=== PATIENT | male | born 1955 | race Caucasian/White ===

== ENCOUNTER → 2016-05-02 | Outpatient (CLI) | payer BC ==
[~2016-05-02] MED LIST: COUMADIN1 MG PO; COUMADIN5 MG PO; MEDROL 4MG DOSPA4 MG PO; MULTI VITAMINS1 TAB PO; NIACIN PO; NIACIN1000 MG PO; NIACIN500 M1 PO; TYLENOL 325MG325 MG PO
== END ==
LOC: LAB 06:56
DX: Z51.81 Encounter for therapeutic drug level monitoring (principal); Z79.01 Long term (current) use of anticoagulants; I82.419 Acute embolism and thrombosis of unspecified femoral vein; I26.99 Other pulmonary embolism without acute cor pulmonale

== ENCOUNTER → 2016-06-18 | Outpatient (CLI) | payer BC | LOC: LAB 06:41 | DX: Z51.81 Encounter for therapeutic drug level monitoring (principal); Z79.01 Long term (current) use of anticoagulants; I26.99 Other pulmonary embolism without acute cor pulmonale; D68.59 Other primary thrombophilia; Z86.718 Personal history of other venous thrombosis and embolism ==

== ENCOUNTER → 2016-08-06 | Outpatient (CLI) | payer BC ==
[2015-10-20 08:45] VITALS: BP 126/70
== END ==
LOC: LAB 06:57
DX: Z51.81 Encounter for therapeutic drug level monitoring (principal); Z79.01 Long term (current) use of anticoagulants; I82.413 Acute embolism and thrombosis of femoral vein, bilateral; I26.99 Other pulmonary embolism without acute cor pulmonale

== ENCOUNTER → 2016-09-25 | Outpatient (CLI) | payer BC ==
[2015-10-20 08:45] VITALS: BP 126/70
== END ==
LOC: LAB 06:37
DX: Z51.81 Encounter for therapeutic drug level monitoring (principal); Z79.01 Long term (current) use of anticoagulants; I82.419 Acute embolism and thrombosis of unspecified femoral vein; I26.99 Other pulmonary embolism without acute cor pulmonale

== ENCOUNTER → 2016-10-24 | Outpatient (CLI) | payer BC ==
[2015-10-20 08:45] VITALS: BP 126/70
== END ==
LOC: LAB 06:37
DX: E03.4 Atrophy of thyroid (acquired) (principal); Z00.00 Encounter for general adult medical examination without abnormal findings; Z12.5 Encounter for screening for malignant neoplasm of prostate; Z51.81 Encounter for therapeutic drug level monitoring; Z79.01 Long term (current) use of anticoagulants; I82.419 Acute embolism and thrombosis of unspecified femoral vein; I26.99 Other pulmonary embolism without acute cor pulmonale

== ENCOUNTER → 2016-10-29 | Outpatient (CLI) | payer BC ==
[2015-10-20 08:45] VITALS: BP 126/70
== END ==
LOC: LAB 06:58
DX: Z12.11 Encounter for screening for malignant neoplasm of colon (principal)

== ENCOUNTER → 2016-11-02 | Outpatient (CLI) | payer BC ==
[~2016-11-02] VITALS: Ht 182.9 cm; Wt 92.3 kg
[2016-11-02 08:34] VITALS: BP 133/75
== END ==
LOC: AMSURD 08:18
DX: Z00.00 Encounter for general adult medical examination without abnormal findings (principal)

== ENCOUNTER → 2016-12-05 | Outpatient (CLI) | payer BC ==
[2016-11-02 08:34] VITALS: BP 133/75
== END ==
LOC: LAB 06:46
DX: E03.9 Hypothyroidism, unspecified (principal); I82.419 Acute embolism and thrombosis of unspecified femoral vein; I26.99 Other pulmonary embolism without acute cor pulmonale

== ENCOUNTER → 2017-01-03 | Outpatient (CLI) | payer BC ==
[2016-11-02 08:34] VITALS: BP 133/75
== END ==
LOC: LAB 06:42
DX: E03.9 Hypothyroidism, unspecified (principal)

== ENCOUNTER → 2017-02-12 | Outpatient (CLI) | payer BC ==
[2016-11-02 08:34] VITALS: BP 133/75
[2017-02-12 07:34] LABS: PROTHROMBIN TIME 25.2 SECONDS (9.0-12.0)
== END ==
LOC: LAB 07:04
PROVIDERS: Internal Medicine
DX: I82.419 Acute embolism and thrombosis of unspecified femoral vein (principal); I26.99 Other pulmonary embolism without acute cor pulmonale

== ENCOUNTER → 2017-04-09 | Outpatient (CLI) | payer BC ==
[2016-11-02 08:34] VITALS: BP 133/75
[2017-04-09 07:09] LABS: PROTHROMBIN TIME 22.8 SECONDS (9.0-12.0)
== END ==
LOC: LAB 06:40
PROVIDERS: Internal Medicine
DX: E03.4 Atrophy of thyroid (acquired) (principal); I82.419 Acute embolism and thrombosis of unspecified femoral vein; I26.99 Other pulmonary embolism without acute cor pulmonale

== ENCOUNTER → 2017-05-27 | Outpatient (CLI) | payer BC ==
[2016-11-02 08:34] VITALS: BP 133/75
[2017-05-27 08:06] LABS: PROTHROMBIN TIME 22.3 SECONDS (9.0-12.0)
== END ==
LOC: LAB 06:40
PROVIDERS: Internal Medicine
DX: E03.4 Atrophy of thyroid (acquired) (principal)

== ENCOUNTER → 2017-06-27 | Outpatient (CLI) | payer BC ==
[2016-11-02 08:34] VITALS: BP 133/75
[2017-06-27 07:23] LABS: PROTHROMBIN TIME 23.5 SECONDS (9.0-12.0)
== END ==
LOC: LAB 06:36
PROVIDERS: Internal Medicine
DX: I26.99 Other pulmonary embolism without acute cor pulmonale (principal); D68.59 Other primary thrombophilia; E03.9 Hypothyroidism, unspecified; Z88.5 Allergy status to narcotic agent

== ENCOUNTER → 2017-08-13 | Outpatient (CLI) | payer BC ==
[2016-11-02 08:34] VITALS: BP 133/75
[2017-08-13 07:14] LABS: PROTHROMBIN TIME 22.8 SECONDS (9.0-12.0)
== END ==
LOC: LAB 06:32
PROVIDERS: Internal Medicine
DX: I26.99 Other pulmonary embolism without acute cor pulmonale (principal); D68.59 Other primary thrombophilia; Z88.5 Allergy status to narcotic agent

== ENCOUNTER → 2017-09-10 | Outpatient (CLI) | payer BC ==
[2016-11-02 08:34] VITALS: BP 133/75
== END ==
LOC: LAB 06:34
PROVIDERS: Internal Medicine
DX: I26.99 Other pulmonary embolism without acute cor pulmonale (principal); D68.59 Other primary thrombophilia

== ENCOUNTER → 2017-10-14 | Outpatient (CLI) | payer BC ==
[2016-11-02 08:34] VITALS: BP 133/75
[2017-10-14 08:45] LABS: PROTHROMBIN TIME 22.7 SECONDS (9.0-12.0)
== END ==
LOC: LAB 06:43
PROVIDERS: Internal Medicine
DX: I26.99 Other pulmonary embolism without acute cor pulmonale (principal); D68.59 Other primary thrombophilia

== ENCOUNTER → 2017-11-18 | Outpatient (CLI) | payer BC ==
[2016-11-02 08:34] VITALS: BP 133/75
== END ==
LOC: LAB 07:11
PROVIDERS: Internal Medicine
DX: Z00.00 Encounter for general adult medical examination without abnormal findings (principal); Z12.11 Encounter for screening for malignant neoplasm of colon

== ENCOUNTER → 2017-11-25 | Outpatient (CLI) | payer BC ==
[~2017-11-25] VITALS: Ht 182.9 cm; Wt 92.3 kg
[~2017-11-25] MED LIST changes: +SYNTHROID0.15 MG PO; +WARFARIN SOD5 MG PO
[2017-11-25 08:47] VITALS: BP 118/72
== END ==
LOC: AMSURD 08:14
DX: Z00.00 Encounter for general adult medical examination without abnormal findings (principal)

== ENCOUNTER → 2017-12-16 | Outpatient (CLI) | payer BC ==
[2017-11-25 08:47] VITALS: BP 118/72
[2017-12-16 07:16] LABS: PROTHROMBIN TIME 19.6 SECONDS (9.0-12.0)
== END ==
LOC: LAB 06:38
PROVIDERS: Internal Medicine
DX: I26.99 Other pulmonary embolism without acute cor pulmonale (principal); D68.59 Other primary thrombophilia; E03.9 Hypothyroidism, unspecified

== ENCOUNTER → 2018-01-20 | Outpatient (CLI) | payer BC ==
[2017-11-25 08:47] VITALS: BP 118/72
[2018-01-20 07:51] LABS: PROTHROMBIN TIME 22.6 SECONDS (9.0-12.0)
== END ==
LOC: LAB 06:41
PROVIDERS: Internal Medicine
DX: I26.99 Other pulmonary embolism without acute cor pulmonale (principal); D68.59 Other primary thrombophilia

== ENCOUNTER → 2018-03-05 | Outpatient (CLI) | payer BC ==
[2017-11-25 08:47] VITALS: BP 118/72
[2018-03-05 07:30] LABS: PROTHROMBIN TIME 25.1 SECONDS (9.0-12.0)
== END ==
LOC: LAB 06:43
PROVIDERS: Internal Medicine
DX: I26.99 Other pulmonary embolism without acute cor pulmonale (principal); D68.59 Other primary thrombophilia

== ENCOUNTER → 2018-05-01 | Outpatient (CLI) | payer BC ==
[2017-11-25 08:47] VITALS: BP 118/72
[2018-05-01 10:25] LABS: PROTHROMBIN TIME 24.6 SECONDS (9.0-12.0)
== END ==
LOC: LAB 08:20
PROVIDERS: Internal Medicine
DX: I26.99 Other pulmonary embolism without acute cor pulmonale (principal); D68.59 Other primary thrombophilia; E03.9 Hypothyroidism, unspecified

== ENCOUNTER → 2018-06-12 | Outpatient (CLI) | payer BC ==
[2017-11-25 08:47] VITALS: BP 118/72
[2018-06-12 07:21] LABS: PROTHROMBIN TIME 26.6 SECONDS (9.0-12.0)
== END ==
LOC: LAB 06:53
PROVIDERS: Internal Medicine
DX: I26.99 Other pulmonary embolism without acute cor pulmonale (principal); D68.59 Other primary thrombophilia

== ENCOUNTER → 2018-07-22 | Outpatient (CLI) | payer BC ==
[2017-11-25 08:47] VITALS: BP 118/72
[2018-07-22 07:21] LABS: PROTHROMBIN TIME 22.4 SECONDS (9.0-12.0)
== END ==
LOC: LAB 06:56
PROVIDERS: Internal Medicine
DX: D68.59 Other primary thrombophilia (principal); I26.99 Other pulmonary embolism without acute cor pulmonale

== ENCOUNTER → 2018-09-15 | Outpatient (CLI) | payer BC ==
[2017-11-25 08:47] VITALS: BP 118/72
[2018-09-15 07:13] LABS: PROTHROMBIN TIME 22.9 SECONDS (9.0-12.0)
== END ==
LOC: LAB 06:51
PROVIDERS: Internal Medicine
DX: I26.99 Other pulmonary embolism without acute cor pulmonale (principal); D68.59 Other primary thrombophilia

== ENCOUNTER → 2018-11-24 | Outpatient (CLI) | payer BC ==
[2017-11-25 08:47] VITALS: BP 118/72
[2018-11-24 15:54] LABS: URINE APPEARANCE CLEAR; URINE BILIRUBIN NEGATIVE (NEGATIVE); URINE BLOOD NEGATIVE (NEGATIVE); URINE COLOR YELLOW; URINE GLUCOSE NEGATIVE (NEGATIVE); URINE KETONE NEGATIVE (NEGATIVE); URINE LEUKOCYTE ESTERASE NEGATIVE (NEGATIVE); URINE NITRATE NEGATIVE (NEGATIVE); URINE PROTEIN(semi-quant) NEGATIVE (NEGATIVE); URINE UROBILINOGEN NORMAL (NORMAL)
[2018-11-24 15:55] LABS: URINE MUCUS PRESENT (NOT PRESENT)
== END ==
LOC: LAB 07:04
PROVIDERS: Internal Medicine
DX: Z00.00 Encounter for general adult medical examination without abnormal findings (principal); Z12.5 Encounter for screening for malignant neoplasm of prostate; Z12.11 Encounter for screening for malignant neoplasm of colon

== ENCOUNTER → 2019-03-10 | Outpatient (CLI) | payer BC ==
[2017-11-25 08:47] VITALS: BP 118/72
[2019-03-10 07:55] LABS: PROTHROMBIN TIME 26.4 SECONDS (9.0-12.0)
== END ==
LOC: LAB 06:36
PROVIDERS: Internal Medicine
DX: D68.59 Other primary thrombophilia (principal); I26.99 Other pulmonary embolism without acute cor pulmonale

== ENCOUNTER → 2019-05-04 | Outpatient (CLI) | payer BC ==
[2017-11-25 08:47] VITALS: BP 118/72
[2019-05-04 07:27] LABS: PROTHROMBIN TIME 22.9 SECONDS (9.0-12.0)
== END ==
LOC: LAB 06:38
PROVIDERS: Internal Medicine
DX: I26.99 Other pulmonary embolism without acute cor pulmonale (principal); D68.59 Other primary thrombophilia

== ENCOUNTER → 2019-06-08 | Outpatient (CLI) | payer BC ==
[2017-11-25 08:47] VITALS: BP 118/72
[2019-06-08 07:15] LABS: PROTHROMBIN TIME 21.2 SECONDS (9.0-12.0)
== END ==
LOC: LAB 06:46
PROVIDERS: Internal Medicine
DX: I26.99 Other pulmonary embolism without acute cor pulmonale (principal); D68.59 Other primary thrombophilia

== ENCOUNTER → 2019-08-04 | Outpatient (CLI) | payer BC ==
[2017-11-25 08:47] VITALS: BP 118/72
[2019-08-04 10:05] LABS: PROTHROMBIN TIME 20.2 SECONDS (9.0-12.0)
== END ==
LOC: LAB 08:18
PROVIDERS: Internal Medicine
DX: I26.99 Other pulmonary embolism without acute cor pulmonale (principal); D68.59 Other primary thrombophilia

== ENCOUNTER → 2019-11-03 | Outpatient (CLI) | payer BC ==
[2017-11-25 08:47] VITALS: BP 118/72
[2019-11-03 07:56] LABS: PROTHROMBIN TIME 21.5 SECONDS (9.0-12.0)
== END ==
LOC: LAB 06:41
PROVIDERS: Internal Medicine
DX: I26.99 Other pulmonary embolism without acute cor pulmonale (principal); D68.59 Other primary thrombophilia

== ENCOUNTER → 2019-12-02 | Outpatient (CLI) | payer BC ==
[2017-11-25 08:47] VITALS: BP 118/72
[2019-12-02 07:08] LABS: EOS # 0.1 (0.04-0.40); EOS % 1.9 % (0.0-4.0); HEMATOCRIT 46.9 % (42.0-52.0); HEMOGLOBIN 16.7 g/dL (13.5-18.0); LYMPH# 1.5 (1.50-4.00); MEAN CELL VOLUME 88 fl (78-100); MEAN CORPUSCULAR HEMOGLOBIN 31 pg (27-31); MEAN CORPUSCULAR HGB CONC 36 g/dL (33-37); MEAN PLATELET VOLUME 9.7 fl (7.4-10.4); MONO # 0.5 (0.20-0.80); NEU # 4.1 (1.40-6.50); PLATELET COUNT 110 K/mm3 (130-400); RED BLOOD COUNT 5.35 M/mm3 (4.20-5.60); RED CELL DISTRIBUTION WIDTH 12.8 % (11.5-14.5); WHITE BLOOD COUNT 6.3 K/mm3 (4.8-10.8)
[2019-12-02 07:13] LABS: ALBUMIN 4.3 g/dL (3.4-4.8); POTASSIUM 4.1 mmol/L (3.5-5.1)
[2019-12-02 07:14] LABS: CALCIUM 9.6 mg/dL (8.3-10.5)
[2019-12-02 07:16] LABS: TOTAL PROTEIN 7.8 g/dL (6.2-8.1)
[2019-12-02 07:18] LABS: TOTAL BILIRUBIN 0.9 mg/dL (0.2-1.2)
[2019-12-02 07:26] LABS: PROTHROMBIN TIME 28.1 SECONDS (9.0-12.0)
[2019-12-02 08:19] LABS: ERYTHROCYTE SEDIMENTATION RATE 0 mm/hr (0-20)
== END ==
LOC: LAB 06:40
PROVIDERS: Internal Medicine
DX: Z00.00 Encounter for general adult medical examination without abnormal findings (principal); Z12.5 Encounter for screening for malignant neoplasm of prostate; I26.99 Other pulmonary embolism without acute cor pulmonale; D68.59 Other primary thrombophilia

== ENCOUNTER → 2019-12-07 | Outpatient (CLI) | payer BC ==
[2017-11-25 08:47] VITALS: BP 118/72
[2019-12-07 09:07] LABS: URINE APPEARANCE CLEAR; URINE BILIRUBIN NEGATIVE (NEGATIVE); URINE BLOOD NEGATIVE (NEGATIVE); URINE COLOR YELLOW; URINE GLUCOSE NEGATIVE (NEGATIVE); URINE KETONE NEGATIVE (NEGATIVE); URINE LEUKOCYTE ESTERASE NEGATIVE (NEGATIVE); URINE MUCUS PRESENT (NOT PRESENT); URINE NITRATE NEGATIVE (NEGATIVE); URINE PROTEIN(semi-quant) NEGATIVE (NEGATIVE); URINE UROBILINOGEN NORMAL (NORMAL); URINE WBC 0-1 /hpf (0-3)
== END ==
LOC: LAB 07:44
PROVIDERS: Internal Medicine
DX: Z00.00 Encounter for general adult medical examination without abnormal findings (principal); Z12.5 Encounter for screening for malignant neoplasm of prostate

== ENCOUNTER → 2019-12-15 | Outpatient (CLI) | payer BC ==
[2017-11-25 08:47] VITALS: BP 118/72
== END ==
LOC: LAB 08:16
DX: E03.9 Hypothyroidism, unspecified (principal); N52.9 Male erectile dysfunction, unspecified

== ENCOUNTER → 2020-01-20 | Outpatient (CLI) | payer BC ==
[2017-11-25 08:47] VITALS: BP 118/72
[2020-01-20 08:05] LABS: PROTHROMBIN TIME 24.9 SECONDS (9.0-12.0)
== END ==
LOC: LAB 07:40
PROVIDERS: Internal Medicine
DX: D68.59 Other primary thrombophilia (principal); I26.99 Other pulmonary embolism without acute cor pulmonale

== ENCOUNTER → 2020-03-01 | Outpatient (CLI) | payer BC ==
[2017-11-25 08:47] VITALS: BP 118/72
[2020-03-01 07:35] LABS: PROTHROMBIN TIME 20.6 SECONDS (9.0-12.0)
== END ==
LOC: LAB 06:40
PROVIDERS: Internal Medicine
DX: D68.59 Other primary thrombophilia (principal); I26.99 Other pulmonary embolism without acute cor pulmonale

== ENCOUNTER → 2020-05-20 | Outpatient (CLI) | payer BC ==
[2017-11-25 08:47] VITALS: BP 118/72
[2020-05-20 09:36] LABS: PROTHROMBIN TIME 26.5 SECONDS (9.0-12.0)
== END ==
LOC: LAB 06:44
PROVIDERS: Internal Medicine
DX: D68.59 Other primary thrombophilia (principal); I26.99 Other pulmonary embolism without acute cor pulmonale

== ENCOUNTER → 2020-06-28 | Outpatient (CLI) | payer BC ==
[2017-11-25 08:47] VITALS: BP 118/72
== END ==
LOC: LAB 07:24
PROVIDERS: Internal Medicine
DX: D68.59 Other primary thrombophilia (principal)

== ENCOUNTER → 2020-08-09 | Outpatient (CLI) | payer BC ==
[2017-11-25 08:47] VITALS: BP 118/72
== END ==
LOC: LAB 06:38
PROVIDERS: Internal Medicine
DX: D68.59 Other primary thrombophilia (principal)

== ENCOUNTER → 2020-09-19 | Outpatient (CLI) | payer BC ==
[2017-11-25 08:47] VITALS: BP 118/72
[2020-09-19 07:44] LABS: PROTHROMBIN TIME 16.7 SECONDS (9.0-12.0)
== END ==
LOC: LAB 06:40
PROVIDERS: Internal Medicine
DX: D68.59 Other primary thrombophilia (principal)

== ENCOUNTER → 2020-09-27 | Outpatient (CLI) | payer BC ==
[2017-11-25 08:47] VITALS: BP 118/72
[2020-09-27 07:26] LABS: PROTHROMBIN TIME 21.3 SECONDS (9.0-12.0)
== END ==
LOC: LAB 06:38
PROVIDERS: Internal Medicine
DX: D68.59 Other primary thrombophilia (principal)

== ENCOUNTER → 2020-11-02 | Outpatient (CLI) | payer BC ==
[2020-11-02 07:53] LABS: PROTHROMBIN TIME 19.8 SECONDS (9.0-12.0)
== END ==
LOC: LAB 06:35
PROVIDERS: Internal Medicine
DX: D68.59 Other primary thrombophilia (principal)

== ENCOUNTER → 2020-11-28 | Outpatient (CLI) | payer BC ==
[2020-11-28 07:07] LABS: BASO # 0.02 (0.02-0.10); EOS # 0.11 (0.04-0.40); EOS % 1.7 % (0.0-4.0); HEMATOCRIT 47.4 % (42.0-52.0); HEMOGLOBIN 16.4 g/dL (13.5-18.0); LYMPH# 1.33 (1.50-4.00); MEAN CELL VOLUME 88 fl (78-100); MEAN CORPUSCULAR HEMOGLOBIN 30 pg (27-31); MEAN CORPUSCULAR HGB CONC 35 g/dL (33-37); MEAN PLATELET VOLUME 9.9 fl (7.4-10.4); MONO # 0.51 (0.20-0.80); NEU # 4.52 (1.40-6.50); PLATELET COUNT 101 K/mm3 (130-400); RED BLOOD COUNT 5.39 M/mm3 (4.20-5.60); RED CELL DISTRIBUTION WIDTH 12.4 % (11.5-14.5); WHITE BLOOD COUNT 6.5 K/mm3 (4.8-10.8)
[2020-11-28 07:12] LABS: POTASSIUM 4.1 mmol/L (3.5-5.1)
[2020-11-28 07:13] LABS: ALBUMIN 4.1 g/dL (3.4-4.8)
[2020-11-28 07:14] LABS: CALCIUM 9.3 mg/dL (8.3-10.5)
[2020-11-28 07:15] LABS: TOTAL PROTEIN 7.1 g/dL (6.2-8.1)
[2020-11-28 07:17] LABS: TOTAL BILIRUBIN 1.2 mg/dL (0.2-1.2)
[2020-11-28 08:32] LABS: ERYTHROCYTE SEDIMENTATION RATE 2 mm/hr (0-20)
== END ==
LOC: LAB 06:43
PROVIDERS: Internal Medicine
DX: Z00.00 Encounter for general adult medical examination without abnormal findings (principal); Z12.5 Encounter for screening for malignant neoplasm of prostate; Z12.11 Encounter for screening for malignant neoplasm of colon; D68.59 Other primary thrombophilia

== ENCOUNTER → 2021-01-10 | Outpatient (CLI) | payer BC ==
[2021-01-10 08:12] LABS: PROTHROMBIN TIME 31.6 SECONDS (9.0-12.0)
== END ==
LOC: LAB 06:37
PROVIDERS: Internal Medicine
DX: D68.59 Other primary thrombophilia (principal)

== ENCOUNTER → 2021-02-21 | Outpatient (CLI) | payer BC ==
[2021-02-21 08:22] LABS: PROTHROMBIN TIME 25.5 SECONDS (9.0-12.0)
== END ==
LOC: LAB 06:43
PROVIDERS: Internal Medicine
DX: D68.59 Other primary thrombophilia (principal)

== ENCOUNTER → 2021-04-04 | Outpatient (CLI) | payer BC ==
[2021-04-04 07:09] LABS: PROTHROMBIN TIME 19.7 SECONDS (9.0-12.0)
== END ==
LOC: LAB 06:41
PROVIDERS: Internal Medicine
DX: D68.59 Other primary thrombophilia (principal)

== ENCOUNTER → 2021-04-11 | Outpatient (CLI) | payer BC | LOC: LAB 10:51 | DX: Z20.822 Contact with and (suspected) exposure to COVID-19 (principal) ==

== ENCOUNTER → 2021-04-17 | Outpatient (CLI) | payer BC ==
[2021-04-17 07:14] LABS: PROTHROMBIN TIME 18.7 SECONDS (9.0-12.0)
== END ==
LOC: LAB 06:46
PROVIDERS: Internal Medicine
DX: D68.59 Other primary thrombophilia (principal)

== ENCOUNTER → 2021-05-09 | Outpatient (CLI) | payer BC ==
[2021-05-09 08:56] LABS: PROTHROMBIN TIME 23.3 SECONDS (9.0-12.0)
== END ==
LOC: LAB 07:49
PROVIDERS: Internal Medicine
DX: D68.59 Other primary thrombophilia (principal)

== ENCOUNTER → 2021-06-06 | Outpatient (CLI) | payer BC ==
[2021-06-06 07:26] LABS: PROTHROMBIN TIME 22.4 SECONDS (9.0-12.0)
== END ==
LOC: LAB 06:37
PROVIDERS: Internal Medicine
DX: D68.59 Other primary thrombophilia (principal)

== ENCOUNTER → 2021-07-31 | Outpatient (CLI) | payer BC ==
[2021-07-31 07:26] LABS: PROTHROMBIN TIME 18.7 SECONDS (9.0-12.0)
== END ==
LOC: LAB 06:34
PROVIDERS: Internal Medicine
DX: D68.59 Other primary thrombophilia (principal)

== ENCOUNTER → 2021-09-04 | Outpatient (CLI) | payer BC ==
[2021-09-04 08:20] LABS: PROTHROMBIN TIME 26.5 SECONDS (9.0-12.0)
== END ==
LOC: LAB 06:45
PROVIDERS: Internal Medicine
DX: D68.59 Other primary thrombophilia (principal)

== ENCOUNTER → 2021-10-09 | Outpatient (CLI) | payer BC ==
[2021-10-09 07:42] LABS: PROTHROMBIN TIME 22.9 SECONDS (9.0-12.0)
== END ==
LOC: LAB 06:45
PROVIDERS: Internal Medicine
DX: D68.59 Other primary thrombophilia (principal)

== ENCOUNTER → 2021-12-07 | Outpatient (CLI) | payer BC ==
[2021-12-07 07:29] LABS: BASO # 0.02 K/mm3 (0.02-0.10); EOS # 0.15 K/mm3 (0.04-0.40); EOS % 2.8 % (0.0-4.0); HEMATOCRIT 48.1 % (42.0-52.0); HEMOGLOBIN 16.6 g/dL (13.5-18.0); MEAN CELL VOLUME 89 fl (78-100); MEAN CORPUSCULAR HEMOGLOBIN 31 pg (27-31); MEAN CORPUSCULAR HGB CONC 35 g/dL (33-37); MEAN PLATELET VOLUME 10.3 fl (7.4-10.4); MONO # 0.49 K/mm3 (0.20-0.80); NEU # 3.38 K/mm3 (1.40-6.50); PLATELET COUNT 96 K/mm3 (130-400); RED CELL DISTRIBUTION WIDTH 12.4 % (11.5-14.5); WHITE BLOOD COUNT 5.5 K/mm3 (4.8-10.8)
[2021-12-07 08:45] LABS: PROTHROMBIN TIME 29.4 SECONDS (9.0-12.0)
[2021-12-07 08:47] LABS: ALBUMIN 4.2 g/dL (3.4-4.8); POTASSIUM 3.8 mmol/L (3.5-5.1)
[2021-12-07 08:48] LABS: CALCIUM 9.7 mg/dL (8.3-10.5)
[2021-12-07 08:50] LABS: TOTAL PROTEIN 7.2 g/dL (6.2-8.1)
[2021-12-07 08:51] LABS: TOTAL BILIRUBIN 1.3 mg/dL (0.2-1.2)
== END ==
LOC: LAB 06:35
PROVIDERS: Internal Medicine
DX: Z00.00 Encounter for general adult medical examination without abnormal findings (principal); Z12.5 Encounter for screening for malignant neoplasm of prostate; Z12.11 Encounter for screening for malignant neoplasm of colon; D68.59 Other primary thrombophilia

== ENCOUNTER → 2021-12-15 | Outpatient (CLI) | payer BC | LOC: LAB 07:38 | DX: Z00.00 Encounter for general adult medical examination without abnormal findings (principal); Z12.5 Encounter for screening for malignant neoplasm of prostate; Z12.11 Encounter for screening for malignant neoplasm of colon ==

== ENCOUNTER → 2022-01-19 | Outpatient (CLI) | payer BC ==
[2022-01-19 07:42] LABS: PROTHROMBIN TIME 27.5 SECONDS (9.0-12.0)
== END ==
LOC: LAB 06:44
PROVIDERS: Internal Medicine
DX: D68.59 Other primary thrombophilia (principal)

== ENCOUNTER → 2022-02-21 | Outpatient (CLI) | payer MEDICARE, BC ==
[2022-02-21 07:28] LABS: PROTHROMBIN TIME 20.6 SECONDS (9.0-12.0)
== END ==
LOC: LAB 06:49
PROVIDERS: Internal Medicine
DX: D68.59 Other primary thrombophilia (principal)

== ENCOUNTER → 2022-04-03 | Outpatient (CLI) | payer MEDICARE, BC ==
[2022-04-03 07:51] LABS: PROTHROMBIN TIME 20.9 SECONDS (9.0-12.0)
== END ==
LOC: LAB 06:45
PROVIDERS: Internal Medicine
DX: D68.59 Other primary thrombophilia (principal)

== ENCOUNTER → 2022-06-12 | Outpatient (CLI) | payer MEDICARE, BC ==
[2022-06-12 07:30] LABS: PROTHROMBIN TIME 18.2 SECONDS (9.0-12.0)
== END ==
LOC: LAB 06:45
PROVIDERS: Internal Medicine
DX: D68.59 Other primary thrombophilia (principal)

== ENCOUNTER → 2023-01-07 | Outpatient (CLI) | payer MEDICARE, BC ==
[~2023-01-07] MED LIST changes: +NIACIN 64 MG-501 TA1 PO; -NIACIN PO; +VIAGRA100 M1 PO; +VITAMIN D3 PO; +multivitamin PO
[2023-01-07 07:32] LABS: PROTHROMBIN TIME 31.6 SECONDS (9.0-12.0)
== END ==
LOC: LAB 06:38
PROVIDERS: Internal Medicine
DX: D68.59 Other primary thrombophilia (principal)

== ENCOUNTER → 2023-02-05 | Outpatient (CLI) | payer MEDICARE, BC ==
[2023-02-05 07:16] LABS: PROTHROMBIN TIME 24.1 SECONDS (9.0-12.0)
== END ==
LOC: LAB 06:33
PROVIDERS: Internal Medicine
DX: D68.59 Other primary thrombophilia (principal)

== ENCOUNTER → 2023-06-24 | Outpatient (CLI) | payer MEDICARE, BC ==
[2023-06-24 07:13] LABS: PROTHROMBIN TIME 20.9 SECONDS (9.0-12.0)
== END ==
LOC: LAB 06:37
PROVIDERS: Internal Medicine
DX: D68.59 Other primary thrombophilia (principal)

== ENCOUNTER → 2023-09-02 | Outpatient (CLI) | payer MEDICARE, BC ==
[2023-09-02 07:11] LABS: PROTHROMBIN TIME 20.1 SECONDS (9.0-12.0)
== END ==
LOC: LAB 06:36
PROVIDERS: Internal Medicine
DX: D68.59 Other primary thrombophilia (principal)

== ENCOUNTER → 2023-10-07 | Outpatient (CLI) | payer MEDICARE, BC ==
[2023-11-27 11:56] LABS: PROTHROMBIN TIME 24.6 SECONDS (9.0-12.0)
== END ==
LOC: LAB
PROVIDERS: Internal Medicine
DX: D68.59 Other primary thrombophilia (principal)

== ENCOUNTER → 2023-11-11 | Outpatient (CLI) | payer MEDICARE, BC ==
[2023-11-11 07:12] LABS: PROTHROMBIN TIME 19.4 SECONDS (9.0-12.0)
== END ==
LOC: LAB 06:33
PROVIDERS: Internal Medicine
DX: D68.59 Other primary thrombophilia (principal)

== ENCOUNTER → 2023-11-27 | Outpatient (CLI) | payer MEDICARE, BC | LOC: LAB 08:59 | DX: Z12.5 Encounter for screening for malignant neoplasm of prostate (principal); Z12.11 Encounter for screening for malignant neoplasm of colon; E78.2 Mixed hyperlipidemia; I49.5 Sick sinus syndrome; R73.9 Hyperglycemia, unspecified ==

== ENCOUNTER → 2023-12-19 | Outpatient (CLI) | payer MEDICARE, BC ==
[2023-12-19 07:14] LABS: PROTHROMBIN TIME 16.4 SECONDS (9.0-12.0)
== END ==
LOC: LAB 06:33
PROVIDERS: Internal Medicine
DX: D68.59 Other primary thrombophilia (principal)

== ENCOUNTER → 2023-12-31 | Outpatient (CLI) | payer MEDICARE | LOC: LAB 06:33 | PROVIDERS: Internal Medicine | DX: D68.59 Other primary thrombophilia (principal) ==

== ENCOUNTER → 2024-01-20 | Outpatient (CLI) | payer MEDICARE, BC ==
[2024-01-20 07:31] LABS: PROTHROMBIN TIME 22.9 SECONDS (9.0-12.0)
== END ==
LOC: LAB 06:41
PROVIDERS: Internal Medicine
DX: D68.59 Other primary thrombophilia (principal)

== ENCOUNTER → 2024-02-18 | Outpatient (CLI) | payer MEDICARE, BC ==
[2024-02-18 07:23] LABS: PROTHROMBIN TIME 22.5 SECONDS (9.0-12.0)
== END ==
LOC: LAB 06:31
PROVIDERS: Internal Medicine
DX: D68.59 Other primary thrombophilia (principal)

== ENCOUNTER → 2024-03-23 | Outpatient (CLI) | payer MEDICARE, BC | LOC: LAB 06:30 | PROVIDERS: Internal Medicine | DX: D68.59 Other primary thrombophilia (principal) ==

== ENCOUNTER → 2024-03-31 | Outpatient (CLI) | payer MEDICARE, BC ==
[2024-03-31 07:53] LABS: PROTHROMBIN TIME 17.7 SECONDS (9.0-12.0)
== END ==
LOC: LAB 06:56
PROVIDERS: Internal Medicine
DX: D68.59 Other primary thrombophilia (principal)

== ENCOUNTER → 2024-04-07 | Outpatient (CLI) | payer MEDICARE, BC ==
[2024-04-07 07:42] LABS: PROTHROMBIN TIME 18.1 SECONDS (9.0-12.0)
== END ==
LOC: LAB 06:44
PROVIDERS: Internal Medicine
DX: D68.59 Other primary thrombophilia (principal)

== ENCOUNTER → 2024-04-15 | Outpatient (CLI) | payer MEDICARE, BC ==
[2024-04-15 08:06] LABS: PROTHROMBIN TIME 22.1 SECONDS (9.0-12.0)
== END ==
LOC: LAB 06:42
PROVIDERS: Internal Medicine
DX: D68.59 Other primary thrombophilia (principal)

== ENCOUNTER → 2024-05-18 | Outpatient (CLI) | payer MEDICARE, BC | LOC: LAB 06:45 | PROVIDERS: Internal Medicine | DX: D68.59 Other primary thrombophilia (principal) ==

== ENCOUNTER → 2024-06-15 | Outpatient (CLI) | payer MEDICARE, BC ==
[2024-06-15 07:48] LABS: PROTHROMBIN TIME 25.7 SECONDS (9.0-12.0)
== END ==
LOC: LAB 06:42
PROVIDERS: Internal Medicine
DX: D68.59 Other primary thrombophilia (principal)

== ENCOUNTER → 2024-07-20 | Outpatient (CLI) | payer MEDICARE, BC ==
[2024-07-20 07:24] LABS: PROTHROMBIN TIME 25.8 SECONDS (9.0-12.0)
== END ==
LOC: LAB 06:40
PROVIDERS: Internal Medicine
DX: D68.59 Other primary thrombophilia (principal)